=== PATIENT | male | born 1960 | race Caucasian/White ===

== ENCOUNTER 2016-03-23 08:07 | Inpatient (IN) | payer OTHER ==
[~2016-03-23] VITALS: Ht 170.2 cm; Wt 96.0 kg
[2016-03-23] VITALS (9 sets, daily range): BP systolic 128–164; BP diastolic 66–88; PULSE 56–76; RESP 15–20; TEMP 96.2–98.2; O2SAT 92–97
[2016-03-23] MEDS ORDERED: CELE50CA PO (08:18)
[2016-03-23] MEDS ORDERED: SODIUM CHLOR 0.9% 1000 ML INJ 1,000 ML IV ONE (08:25)
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
[2016-03-23] MEDS ORDERED: IOHEXOL 350 MG/ML 10 ML VIAL (for RAD DIAG) IV ONE (08:48)
--- NOTE | 2016-03-23 08:50 | RADRPT ---
EXAM DATE/TIME: 03/23/2016 08:34 This report includes an Addendum and supersedes previous reports for this exam. [facility] COMPARISON: No previous studies available for comparison. INDICATIONS : Stroke alert; Expressive aphasia today. RADIATION DOSE: 43.12 CTDIvol (mGy) MEDICAL HISTORY : Head trauma 2 weeks ago. SURGICAL HISTORY : None. ENCOUNTER: Initial ACUITY: 1 day PAIN SCALE: 0/10 LOCATION: cranial TECHNIQUE: Multiple contiguous axial images were obtained of the head. Using automated exposure control and adj ustment of the mA and/or kV according to patient size, radiation dose was kept as low as reasonably a chievable to obtain optimal diagnostic quality images. FINDINGS: CEREBRUM: There is a moderate-sized acute left middle cerebral artery infarction which involves the left tempor al and mid parietal lobes. There is no acute hemorrhage, midline shift or extra-axial fluid collectio ns. The ventricles, sulci and cisterns are unremarkable. POSTERIOR FOSSA: The cerebellum and brainstem are intact. The 4th ventricle is midline. The cerebellopontine angle i s unremarkable. EXTRACRANIAL: The visualized portion of the orbits is intact. SKULL: The calvaria is intact. No evidence of skull fracture. CONCLUSION: Moderate-sized acute left middle cerebral artery infarction which involves the left t emporal and mid parietal lobes. No acute hemorrhage or midline shift is noted. Dr. Sanabria was called with the findings of the examination at 8:46 AM on 03/23/16. Kwadwo Alvarado MD on March 23, 2016 at 8:45 Board Certified Radiologist. This report was verified electronically. ADDENDUM: The CTA of the brain was reviewed shortly after this reading and it was noted that there is a periphe rally enhancing mass within the left temporal lobe with associated edema rather than an acute left MC A infarct. This finding was called immediately to Dr. Riky Delacruz at 8:55 AM on 03/23/16. Kwadwo Alvarado MD on March 23, 2016 at 9:28 Board Certified Radiologist. This report was verified electronically.
[2016-03-23 08:52] LABS: I-STAT POTASSIUM 4.2 MMOL/L (3.5-4.9); I-STAT SODIUM 142 MMOL/L (138-146)
[2016-03-23 08:53] LABS: AUTOMATED NEUTROPHIL # 4.3 TH/MM3 (1.8-7.7); BASOPHIL # 0.1 TH/MM3 (0-0.2); EOSINOPHIL # 0.3 TH/MM3 (0-0.4); HEMATOCRIT 41.7 % (39.0-51.0); HEMO FLAGS DIFF FINAL; LYMPH % 31.7 % (9.0-44.0); LYMPHOCYTE # 2.4 TH/MM3 (1.0-4.8); MEAN CELL VOLUME 90.3 FL (80.0-100.0); MEAN CORPUSCULAR HEMOGLOBIN 30.6 PG (27.0-34.0); MEAN CORPUSCULAR HGB CONC 33.9 % (32.0-36.0); MONO % 6.9 % (0.0-8.0); NEUT % 56.4 % (16.0-70.0); PLATELET COUNT 235 TH/MM3 (150-450); RED BLOOD COUNT 4.62 MIL/MM3 (4.50-5.90); RED CELL DISTRIBUTION WIDTH 13.6 % (11.6-17.2); WHITE BLOOD COUNT 7.7 TH/MM3 (4.0-11.0)
[2016-03-23 09:01] LABS: APTT (PATIENT) 24.3 SEC (24.3-30.1)
[2016-03-23 09:14] LABS: CREATINE KINASE 408 U/L (39-308)
[2016-03-23 09:26] LABS: CKMB 6.9 NG/ML (0.5-3.6)
--- NOTE | 2016-03-23 09:28 | RADRPT ---
EXAM DATE/TIME: 03/23/2016 08:34 [facility] COMPARISON: CT BRAIN W/O CONTRAST, March 23, 2016, 8:34. INDICATIONS : Stroke alert; expressive aphasia. IV CONTRAST: 99 cc Omnipaque 350 (iohexol) IV ; Cumulative dose for multiple exams. RADIATION DOSE: 28.64 CTDIvol (mGy) ; Combined studies MEDICAL HISTORY : Head trauma 2 weeks ago. SURGICAL HISTORY : None. ENCOUNTER: Initial ACUITY: 1 day PAIN SCALE: 0/10 LOCATION: cranial TECHNIQUE: Volumetric scanning was performed using a multi-row detector CT scanner. The data was post processed with a variety of visualization algorithms including full volume maximum intensity projection, multi -planar sliding thin slab reformation, curved planar reformation, and surface rendering techniques. Using automated exposure control and adjustment of the mA and/or kV according to patient size, radiat ion dose was kept as low as reasonably achievable to obtain optimal diagnostic quality images. FINDINGS: CT angiography of the brain demonstrates an irregular ring-enhancing lesion in the anterior left temp oral lobe measuring 3.1 cm in diameter suspicious for malignancy. No other enhancing lesions are iden tified and primary malignancy including glioblastoma is not excluded. MRI is recommended for further evaluation if clinically indicated. No large vessel occlusion or aneurysm is seen. Examination of posterior fossa also demonstrates no evidence of aneurysm or vascular malformation. Th e vertebral arteries are codominant. There are patent posterior communicating arteries bilaterally. CONCLUSION: 1. No evidence of vessel occlusion. 2. 3.1 cm mass in the anterior left temporal lobe suspicious for malignancy. MRI is recommended for f urther evaluation if clinically indicated. Khadar Killian MD on March 23, 2016 at 9:10 Board Certified Radiologist. This report was verified electronically.
[2016-03-23] MEDS ORDERED: ONDANSETRON HCL 4 MG/2 ML VIAL IVP PRN (10:00)
[2016-03-23] MEDS ORDERED: NALOXONE HCL 0.4 MG/ML AMP IV PRN (10:00)
[2016-03-23] MEDS ORDERED: SODIUM CHLORIDE 0.9% FLUSH 5 ML FLUSH FLUSH PRN (10:00)
[2016-03-23] MEDS: FAMOTIDINE 20 MG TAB PO SCH ×2 (10:01→20:48)
--- NOTE | 2016-03-23 10:16 | RADRPT ---
EXAM DATE/TIME: 03/23/2016 08:34 [facility] COMPARISON: No previous studies available for comparison. INDICATIONS : Stroke alert; expressive aphasia. IV CONTRAST: 99 cc Omnipaque 350 (iohexol) IV ; Cumulative dose for multiple exams. RADIATION DOSE: 28.64 CTDIvol (mGy) ; Combined studies MEDICAL HISTORY : Head trauma 2 weeks ago. SURGICAL HISTORY : None. ENCOUNTER: Initial ACUITY: 1 day PAIN SCALE: 0/10 LOCATION: cranial TECHNIQUE: Volumetric scanning was performed using a multirow detector CT scanner. The data was post processed with a variety of visualization algorithms including full-volume maximum intensity projection, multip lanar sliding thin-slab reformation, curved-planar reformation, and surface-rendering techniques. Us ing automated exposure control and adjustment of the mA and/or kV according to patient size, radiatio n dose was kept as low as reasonably achievable to obtain optimal diagnostic quality images. FINDINGS: AORTIC ARCH: There is a three-vessel origin of the great vessels from the aorta. No evidence of ostial narrowing. RIGHT CAROTID: The common carotid artery is intact. The carotid bulb has a normal configuration without ulceration o r narrowing. The internal carotid artery lumen is smooth without stenosis. The external carotid shabbir ry is intact. LEFT CAROTID: The common carotid artery is intact. The carotid bulb has a normal configuration without ulceration or narrowing. The internal carotid artery lumen is smooth without stenosis. The external carotid ar tereza is intact. VERTEBRALS: The vertebral arteries have a symmetric diameter. No stenotic lesions are seen. CONCLUSION: No acute disease. Kwadwo Alvarado MD on March 23, 2016 at 10:12 Board Certified Radiologist. This report was verified electronically.
--- NOTE | 2016-03-23 10:24 | RADRPT ---
EXAM DATE/TIME: 03/23/2016 09:52 [facility] COMPARISON: No previous studies available for comparison. INDICATIONS : Stroke alert. MEDICAL HISTORY : Head trauma 2 weeks ago. SURGICAL HISTORY : None. ENCOUNTER: Initial ACUITY: 1 day PAIN SCORE: 0/10 LOCATION: Bilateral chest FINDINGS: A single view of the chest demonstrates the lungs to be symmetrically aerated without evidence of mas s, infiltrate or effusion. The cardiomediastinal contours are unremarkable. Osseous structures are intact. CONCLUSION: No acute disease. Philippe Kay MD on March 23, 2016 at 10:22 Board Certified Radiologist. This report was verified electronically.
[2016-03-23] MEDS ORDERED: GADODIAMIDE PF 287 MG/ML 20 ML VIAL (for RAD MRI) IV ONE (10:42)
--- NOTE | 2016-03-23 10:47 | MB ---
cc: PRAMOD ABRAHAM M.D. DATE OF CONSULTATION 03/23/2016 REASON FOR CONSULTATION Stroke alert HISTORY OF PRESENT ILLNESS Mr. Rincon is a very nice 55-year-old right-handed white male previously in good health until around 07:45 this morning. At that time, his was driving him to work in the car. He suddenly had a nauseating type of feeling come over him and then he had difficulty getting words out. He states she could think of what he wanted to say, but had trouble expressing the words. He would say a word salad where the words did not make sense. He had no focal weakness or numbness. No other focal symptoms. No headache. In retrospect for the past couple of weeks, he has been having spells where he would have some difficulty getting words out, but no headaches, no visual complaints. No weight loss. PAST MEDICAL HISTORY Otherwise unremarkable. MEDICATIONS He takes: 1. Multivitamin 2. Testosterone 3. Celebrex ALLERGIES Are none known. SOCIAL HISTORY Denies drug abuse, tobacco use. Drinks alcohol rarely. NEUROLOGIC EXAMINATION VITAL SIGNS: Blood pressure is 155/85, pulse 62, respiratory rate is 20, temperature 98.2 degrees. Higher cortical functions: At this time he is alert, oriented x3. Speech is completely back to normal at the present time with normal fluency and normal comprehension. Cranial nerves: The pupils are 2 mm symmetric and reactive. The extraocular movements area intact. There is no facial asymmetry. Tongue protrudes midline. On motor exam, he has normal strength and tone of all major groups in both upper and lower extremities. There is no drift. Fine motor skills normal. Reflexes symmetric with no Babinski sign present. Sensory exam intact. CT of the brain shows an area of edema which appears to be mainly vasogenic edema in the left parietal and temporal area. CTA shows a ring-enhancing lesion most likely a left hemisphere tumor with associated edema. LABORATORY DATA The white count is 7700, hemoglobin 14.1, hematocrit 41.7% platelet count is 235,000. His PT is pending. Chemistry reveals a sodium 142, potassium 42, chloride 104, BUN is 23, creatinine 1, glucose 123. IMPRESSION The episode he had was probably a focal seizure related to the left hemisphere tumor. In retrospect, he has been having a couple of episodes of speech arrest over the past week which I suspect might be focal seizures. RECOMMENDATIONS We will start the patient on Keppra for the possibility of seizures. Also start Decadron because of the edema. We will further evaluate the lesion with an MRI of the brain also obtain an EEG. Would also recommend a neurosurgical evaluation. We will place the patient under seizure precautions as well. The patient has an NIH stroke scale initially on presentation of 4, now he is back to normal. TPA was not given because of what is mentioned above that the patient actually suffered a focal seizure from a tumor, although presenting as a stroke alert. Upon further evaluation, it was determined not to be a stroke, but to be a tumor with a focal seizure. Thank you for asking us to see this nice patient in consultation. MD BRUNILDA Brooks/TAVIA /9:25 AM /10:32 AM
--- NOTE | 2016-03-23 10:48 | PD.CONS ---
History of Present Illness Service Neurosurgery Consult Requested By Emergency room , Dr. Polly Sanabria Primary Care Physician Non-Staff Diagnoses: Past Family Social History Allergies: Coded Allergies: No Known Allergies (Unverified , 03/23/16) Physical Exam Vital Signs Vital Signs Date Time Temp Pulse Resp B/P Pulse Ox O2 Delivery O2 Flow Rate FiO2 03/23/16 10:25 95 21 03/23/16 08:50 75 15 156/72 96 Room Air 03/23/16 08:10 94 Room Air 03/23/16 08:10 94 Room Air 03/23/16 08:08 98.2 62 20 155/85 92 03/23/16 08:08 76 16 94 Room Air Physical Exam GENERAL: This is a well-nourished, well-developed patient, in no apparent distress. SKIN: No rashes, ecchymoses or lesions. Cool and dry. HEAD: Atraumatic. Normocephalic. No temporal or scalp tenderness. EYES: Pupils equal round and reactive. Extraocular motions intact. No scleral icterus. No injection or drainage. ENT: Nose without bleeding, purulent drainage or septal hematoma. Throat without erythema, tonsillar hypertrophy or exudate. Uvula midline. Airway patent. NECK: Trachea midline. No JVD or lymphadenopathy. Supple, nontender, no meningeal signs. CARDIOVASCULAR: Regular rate and rhythm without murmurs, gallops, or rubs. RESPIRATORY: Clear to auscultation. Breath sounds equal bilaterally. No wheezes , rales, or rhonchi. GASTROINTESTINAL: Abdomen soft, non-tender, nondistended. No hepato-splenomegaly , or palpable masses. No guarding. MUSCULOSKELETAL: Extremities without clubbing, cyanosis, or edema. No joint tenderness, effusion, or edema noted. No calf tenderness. Negative Homans sign bilaterally. NEUROLOGICAL: Awake and alert. Cranial nerves II through XII intact. Motor and sensory grossly within normal limits. Five out of 5 muscle strength in all muscle groups. Normal speech. Laboratory Laboratory Tests Test 03/23/16 08:30 White Blood Count 7.7 Red Blood Count 4.62 Hemoglobin 14.1 Bedside Hemoglobin 13.3 Hematocrit 41.7 Bedside Hematocrit 39.0 Mean Corpuscular Volume 90.3 Mean Corpuscular Hemoglobin 30.6 Mean Corpuscular Hemoglobin 33.9 Concent Red Cell Distribution Width 13.6 Platelet Count 235 Mean Platelet Volume 7.7 Neutrophils (%) (Auto) 56.4 Lymphocytes (%) (Auto) 31.7 Monocytes (%) (Auto) 6.9 Eosinophils (%) (Auto) 4.0 Basophils (%) (Auto) 1.0 Neutrophils # (Auto) 4.3 Lymphocytes # (Auto) 2.4 Monocytes # (Auto) 0.5 Eosinophils # (Auto) 0.3 Basophils # (Auto) 0.1 CBC Comment DIFF FINAL Differential Comment Prothrombin Time 11.0 Prothromb Time International 1.0 Ratio Activated Partial 24.3 Thromboplast Time Fibrinogen 223 Bedside Sodium 142 Bedside Potassium 4.2 Bedside Chloride 104 Bedside Blood Urea Nitrogen 23 Bedside Creatinine 1.0 Bedside Glucose 123 Total Creatine Kinase 408 Creatine Kinase MB 6.9 Creatine Kinase MB % 1.7 Troponin I LESS THAN 0.02 Blood Type A POSITIVE Antibody Screen NEGATIVE Blood Bank Comment Result Diagram: 03/23/16829 Imaging Chest X-Ray 03/23/16 0947 Signed Impressions: Service Date/Time: March 09:52 - CONCLUSION: No acute disease. Philippe Kay MD Neck CTA 03/23/16824 Signed Impressions: Service Date/Time: March 08:34 - CONCLUSION: No acute disease. Kwadwo Alvarado MD Head CTA 03/23/16824 Signed Impressions: Service Date/Time: March 08:34 - CONCLUSION: 1. No evidence of vessel occlusion. 2. 3.1 cm mass in the anterior left temporal lobe suspicious for malignancy. MRI is recommended for further evaluation if clinically indicated. 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 No acute hemorrhage or midline shift is noted. Dr. Sanabria was called with the findings of the examination at 8:46 AM on 03/23/16. Kwadwo Alvarado MD ADDENDUM: The CTA of the brain was reviewed shortly after this reading and it was noted that there is a peripherally enhancing mass within the left temporal lobe with associated edema rather than an acute left MCA infarct. This finding was called immediately to Dr. Riky Delacruz at 8:55 AM on 03/23/16. Kwadwo Alvarado MD Brain MRI 03/23/16 0000 Signed Impressions: Service Date/Time: March 10:28 - CONCLUSION: 1. Peripherally enhancing mass within the left temporal lobe measuring 3.9 x 3.2 x 2.9 cm with associated vasogenic edema extending throughout the left temporal lobe and minimal subfalacine herniation to the right measuring 2 mm. This lesion is suspicious for primary central nervous system neoplasm, in particular , glioblastoma should be considered most likely. Kwadwo Alvarado MD Assessment and Plan Assessment and Plan Impression: 1. Left temporal brain lesion. 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 Recommendations: Discussed at length with the patient and his in the emergency room CT scan chest and abdomen pending Gen. treatment options of biopsy versus surgical resection of the lesion with pronation therapy as well as chemotherapy is indicated been fully discussed. Despite the location of the lesion in the dominant temporal lobe, it is felt that surgical resection would offer the best prognosis with the patient with reasonably low risk of surgical complication. Patient and his are going to consider treatment options, and further discussion will be undertaken following the completion of the CT scan images. Patient is on Keppra for seizure prophylaxis, Decadron and medication for ulcer prophylaxis. Kenneth Burger MD Mar 23, 2016 10:48
--- NOTE | 2016-03-23 11:37 | HHI.HP ---
[facility] Primary Care Physician Non-Staff Admission Diagnosis BRAIN TUMOR Diagnoses: Chief Complaint: Aphasia. Word salad, memory impairment. Travel History International Travel<30 Days: No Contact w/Intl Traveler <30 Da: No Traveled to Known Affected Are: No History of Present Illness 55-year-old pleasant male brought in by his due to acute onset confusion and a burst speech. The patient and his has been doing some olivia work as volunteers. On the way to work this morning around 7 AM, he initially complained of feeling nauseous and shortly after he had an acute episode of confusion, with gibberish speech. His immediately brought him into the emergency room. A stroke alert was called. CT of the brain revealed a 3.1 cm mass in the anterior left temporal lobe suspicious for malignancy. The patient has regained most of his neurological function. Currently he is able to provide that history but admits to have some mild memory impairment. His is at the bedside. He denies any focal weakness. No headache or change in his vision. He has been started on IV steroid and Keppra per neurology recommendations. Review of Systems Constitutional: DENIES: Fever, Chills Endocrine: DENIES: Polyuria Eyes: DENIES: Blurred vision, Diplopia Ears, nose, mouth, throat: DENIES: Vertigo Respiratory: DENIES: Cough, Shortness of breath Gastrointestinal: COMPLAINS OF: Nausea, DENIES: Vomiting Genitourinary: DENIES: Dysuria Musculoskeletal: COMPLAINS OF: Joint pain (hands) Integumentary: DENIES: Rash Neurologic: COMPLAINS OF: Speech Problems, DENIES: Headache, Localized weakness Psychiatric: COMPLAINS OF: Confusion, DENIES: Mood changes Past Family Social History Past Medical History Arthritis involving the shoulders and hands. Low testosterone Past Surgical History None Reported Medications Reported Meds & Active Scripts Active Reported Celebrex (Celecoxib) 50 Mg Cap 50 Mg PO BID Allergies: Coded Allergies: No Known Allergies (Unverified , 03/23/16) Family History Patient's mother in her 50s from complications of Mitzy Gehrig's disease Father is alive and well. Sister in her 50s doing a seizure,?suffocated Another sister of unknown causes at a young age. One sister alive and well. Social History Patient denies tobacco, admits to occasional alcohol use, no illicit drug. Physical Exam Vital Signs Vital Signs Date Time Temp Pulse Resp B/P Pulse Ox O2 Delivery O2 Flow Rate FiO2 03/23/16 10:25 95 21 03/23/16 08:50 75 15 156/72 96 Room Air 03/23/16 08:10 94 Room Air 03/23/16 08:10 94 Room Air 03/23/16 08:08 98.2 62 20 155/85 92 03/23/16 08:08 76 16 94 Room Air Physical Exam GENERAL: This is a well-nourished, well-developed patient, in no apparent distress. SKIN: No rashes, ecchymoses or lesions. Cool and dry. HEAD: Atraumatic. Normocephalic. No temporal or scalp tenderness. EYES: Pupils equal round and reactive. Extraocular motions intact. No scleral icterus. No injection or drainage. ENT: Nose without bleeding, purulent drainage or septal hematoma. Throat without erythema, tonsillar hypertrophy or exudate. Uvula midline. Airway patent. NECK: Trachea midline. No JVD or lymphadenopathy. Supple, nontender, no meningeal signs. CARDIOVASCULAR: Regular rate and rhythm without murmurs, gallops, or rubs. RESPIRATORY: Clear to auscultation. Breath sounds equal bilaterally. No wheezes , rales, or rhonchi. GASTROINTESTINAL: Abdomen soft, non-tender, nondistended. No hepato-splenomegaly , or palpable masses. No guarding. MUSCULOSKELETAL: Extremities without clubbing, cyanosis, or edema. No joint tenderness, effusion, or edema noted. No calf tenderness. Negative Homans sign bilaterally. NEUROLOGICAL: Awake and alert. Cranial nerves II through XII intact. Motor and sensory grossly within normal limits. Five out of 5 muscle strength in all muscle groups. Normal speech. Gait not assessed. Some mild memory impairment at times. Could not remember when his sister which was last summer according to his . Laboratory Laboratory Tests Test 03/23/16 08:30 White Blood Count 7.7 Red Blood Count 4.62 Hemoglobin 14.1 Bedside Hemoglobin 13.3 Hematocrit 41.7 Bedside Hematocrit 39.0 Mean Corpuscular Volume 90.3 Mean Corpuscular Hemoglobin 30.6 Mean Corpuscular Hemoglobin 33.9 Concent Red Cell Distribution Width 13.6 Platelet Count 235 Mean Platelet Volume 7.7 Neutrophils (%) (Auto) 56.4 Lymphocytes (%) (Auto) 31.7 Monocytes (%) (Auto) 6.9 Eosinophils (%) (Auto) 4.0 Basophils (%) (Auto) 1.0 Neutrophils # (Auto) 4.3 Lymphocytes # (Auto) 2.4 Monocytes # (Auto) 0.5 Eosinophils # (Auto) 0.3 Basophils # (Auto) 0.1 CBC Comment DIFF FINAL Differential Comment Prothrombin Time 11.0 Prothromb Time International 1.0 Ratio Activated Partial 24.3 Thromboplast Time Fibrinogen 223 Bedside Sodium 142 Bedside Potassium 4.2 Bedside Chloride 104 Bedside Blood Urea Nitrogen 23 Bedside Creatinine 1.0 Bedside Glucose 123 Total Creatine Kinase 408 Creatine Kinase MB 6.9 Creatine Kinase MB % 1.7 Troponin I LESS THAN 0.02 Blood Type A POSITIVE Antibody Screen NEGATIVE Blood Bank Comment Result Diagram: 03/23/16829 Imaging Last Impressions Chest X-Ray 03/23/1647 Signed Impressions: Service Date/Time: March 09:52 - CONCLUSION: No acute disease. Philippe Kay MD Neck CTA 03/23/16824 Signed Impressions: Service Date/Time: March 08:34 - CONCLUSION: No acute disease. Kwadwo Alvarado MD Head CTA 03/23/16824 Signed Impressions: Service Date/Time: March 08:34 - CONCLUSION: 1. No evidence of vessel occlusion. 2. 3.1 cm mass in the anterior left temporal lobe suspicious for malignancy. MRI is recommended for further evaluation if clinically indicated. 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 No acute hemorrhage or midline shift is noted. Dr. Sanabria was called with the findings of the examination at 8:46 AM on 03/23/16. Kwadwo Alvarado MD ADDENDUM: The CTA of the brain was reviewed shortly after this reading and it was noted that there is a peripherally enhancing mass within the left temporal lobe with associated edema rather than an acute left MCA infarct. This finding was called immediately to Dr. Riky Delacruz at 8:55 AM on 03/23/16. Kwadwo Alvarado MD Assessment and Plan Problem List: (1) Brain tumor ICD Code: D49.6 Status: Acute (2) Osteoarthritis ICD Code: M19.90 Status: Acute Assessment and Plan 55-year-old male being admitted for newly discovered brain tumor. Patient presented with acute confusion, aphasia, and word salad. His symptoms have since resolved. Brain CT revealed a 3.1 cm mass in the anterior left temporal lobe suspicious for malignancy. MRI is recommended. - Appreciate neurology following. Patient has been started on Decadron for edema noted on imaging. He was also started on Keppra as his symptoms may have been a possible seizure. - MRI and EEG ordered. Seizure precautions - Neurosurgery has been consulted. Patient will need a biopsy. Osteoarthritis: May use Lortab as needed. Hold off on NSAIDs for now. GI prophylaxis: Pepcid. Stool softener PRN constipation. DVT PPx: SCDs Discussed Condition With With ER physician, Dr. Sanabria. Physician Certification 2 Midnight Certification Type: Admission for Inpatient Services Order for Inpatient Services The services are ordered in accordance with Medicare regulations or non- Medicare payer requirements, as applicable. In the case of services not specified as inpatient-only, they are appropriately provided as inpatient services in accordance with the 2-midnight benchmark. Estimated LOS (days): 5 days is the estimated time the patient will need to remain in the hospital, assuming treatment plan goals are met and no additional complications. Post-Hospital Plan: Home Emmett Michael MD Mar 23, 2016 11:37
[2016-03-23] MEDS: SODIUM CHLOR 0.45% 1000 ML INJ 1,000 ML IV SCH ×2 (11:50→20:49)
[2016-03-23] MEDS ORDERED: DEXAMETHASONE SOD PHOS 4 MG/ML VIAL IM SCH (12:00)
--- NOTE | 2016-03-23 12:13 | RADRPT ---
EXAM DATE/TIME: 03/23/2016 10:28 [facility] COMPARISON: No previous studies available for comparison. INDICATIONS: Mass. Confusion and difficulty speaking. CONTRAST: 18 cc Omniscan (gadodiamide) IV MEDICAL HISTORY: Arthritis. SURGICAL HISTORY: Tonsillectomy. ENCOUNTER: Subsequent ACUITY: 1 day PAIN SCORE: 0/10 LOCATION: Head. TECHNIQUE: Multiplanar, multisequence MRI of the brain was performed both prior to and following the administrat ion of paramagnetic contrast. FINDINGS: There is evidence of a peripherally enhancing mass within the left temporal lobe measuring 3.9 x 3.2 x 2.9 cm. Vasogenic edema extends throughout the left temporal lobe. There is very minimal subfalac ine herniation to the right measuring 2 mm. This mass is suspicious for primary central nervous syst em neoplasm, in particular, glioblastoma should be considered most likely. No other enhancing lesion s are identified within the brain parenchyma. There is no acute hemorrhage, acute infarct or extraax ial collection. The ventricles, sulci and cisterns are normal in size, shape and position for the pa tient's age. CONCLUSION: 1. Peripherally enhancing mass within the left temporal lobe measuring 3.9 x 3.2 x 2.9 cm with asso ciated vasogenic edema extending throughout the left temporal lobe and minimal subfalacine herniation to the right measuring 2 mm. This lesion is suspicious for primary central nervous system neoplasm, in particular, glioblastoma should be considered most likely. Kwadwo Alvarado MD on March 23, 2016 at 11:52 Board Certified Radiologist. This report was verified electronically.
[2016-03-23] MEDS ORDERED: LORazepam 2 MG/ML VIAL IV PUSH ONE (13:15)
--- NOTE | 2016-03-23 13:41 | EKG ---
Date Performed: 03/23/2016 Time Performed: 08:17:34 PTAGE: 55 years EKG: Sinus rhythm NONSPECIFIC T-WAVE ABNORMALITY BORDERLINE ECG NO PREVIOUS TRACING DOCTOR: Tao Cortez Interpretating Date/Time 03/23/2016 13:39:58
[2016-03-23] MEDS: levETIRAcetam INJ 500 MG in SODIUM CHLORIDE 0.9% INJ 100 ML IV SCH ×2 (15:15→20:49)
--- NOTE | 2016-03-23 16:05 | MG ---
cc: SKYLAR CHOI M.D. Lab No: [id number] Date: 03/23/2016 Age: 56 Sex: M Race: Minimal subfalcine herniation to the right, glioblastoma, Decadron. A symmetric 7 to 8 Hz, 50 microvolt posterior rhythm is noted. I do not see any frontal lobe abnormalities. Some mild diffuse theta slowing is at times seen. Appears the patient falls asleep and reaches some stage II sleep which is synchronous and symmetric. Hyperventilation was not performed. Photic stimulation was performed without significant posterior driving. IMPRESSION Minimal diffuse slowing consistent with a mild diffuse encephalopathy but no focal abnormalities noted. No seizure activity was seen. Specifically no frontal lobe abnormalities were noted. MD KENDALL Keen/BLAYNE /2:49 PM /3:57 PM
[2016-03-23] MEDS: SODIUM CHLORIDE 0.9% FLUSH 5 ML FLUSH FLUSH SCH (20:49)
--- NOTE | 2016-03-23 22:27 | MB ---
cc: ELHAM DESAI MD,KENNETH Raman M.D. DATE OF CONSULTATION: 03/23/2016 HEMATOLOGY/ONCOLOGY CONSULTATION NOTE DATE OF : 1960 CONSULT REQUESTED BY Dr. Kenneth Burger REASON FOR CONSULTATION The patient found to have an infiltrating mass involving the left temporal lobe of the brain. The oncology service has been consulted to assist in further workup and management of what appears to be a malignant process. CHIEF COMPLAINT The patient reports a gradual onset of difficulty finding words over the past two weeks. HISTORY OF PRESENT ILLNESS Mr. Rincon is a very pleasant 55-year-old male of the [employer] who served three tours of duty. Mr. Rincon reports being in his usual excellent state of health up until about two weeks ago when he began to notice difficulty naming objects and formulating sentences. He reported these symptoms to his , and they felt this may have been attributed to more than normal physical exertion and fatigue. On the morning of admission to the hospital, the patient developed confusion and difficulty speaking proper words. He also reports having a vague headache. His suspected he was having a stroke and brought him to the [facility] Emergency Department for further workup and management. Imaging studies performed at [facility] included an MRI of the brain with and without contrast on 03/23/2016. This revealed a peripherally enhancing left temporal lobe mass measuring up to 3.9 cm associated with vasogenic edema. There was minimal subfalcine herniation of about 2 mm. Differential diagnoses included glioblastoma multiforme as well as other primary brain malignancy such as primary [employer] lymphoma. He is awaiting systemic staging with a CT scan of the abdomen and pelvis as well as chest to rule out an extrathoracic primary. PAST MEDICAL HISTORY The patient denies any chronic medical conditions. SURGICAL HISTORY Denies any surgical procedures. FAMILY HISTORY Mother of ALS. The father is living, he is about 78 years old. He had a second sister who of seizures. SOCIAL HISTORY The patient is , he lives with his . He is originally from [facility] which is where he spends most of the year, him and spend the winter months in [place]. He has one son who is an adult and serves in the [employer]. Mr. Rincon reports formerly having been a smoker but quit in 2000, prior to that he smoked less than a pack a day for about 20 years. He denies alcohol consumption. ALLERGIES NO KNOWN DRUG ALLERGIES. OUTPATIENT MEDICATIONS None. INPATIENT MEDICATIONS 1. Dexamethasone 4 mg IV q.6 hours. 2. Keppra infusion. 3. Zofran 4 mg IV q.4 hours as needed for nausea and vomiting. 4. Normal saline 75 cc/hr. 5. Famotidine 20 mg p.o. b.i.d. REVIEW OF SYSTEMS Mr. Rincon denies any specific symptoms. He denies any fevers, chills, night sweats, decreased appetite or weight loss. HEENT: Reports a vague headache, denies difficulty swallowing, soreness in the throat, nosebleeds, or visual field deficits. RESPIRATORY: Denies difficulty breathing, cough or hemoptysis. Pleuritic chest pain. CARDIOVASCULAR: Denies angina-like chest pain, PND, orthopnea or lower extremity swelling. GI: Denies nausea, vomiting, diarrhea hematochezia or melena. UG: No dysuria, hematuria or urinary incontinence. [employer]: Please see HPI; the patient reports having had difficulty with word searching and expressive aphasia. He denies any focal sensory or motor deficits. SKIN: No complaints. PHYSICAL EXAMINATION VITAL SIGNS: Vital signs reveal temperature 98.2 degrees Fahrenheit, heart rate 76 beats per minute, blood pressure 16 breaths per minute, blood pressure 151/81, O2 sats 96% on room air. GENERAL PHYSICAL APPEARANCE: Mr. Rincon is a middle-aged male, he is short, he is muscular built, appears to be in no acute distress, accompanied by his . He speaks in full sentences. HEENT: Head is atraumatic, normocephalic. Conjunctivae are non-pale. Sclerae anicteric. EOMI. PERRLA. Oral exam - no pharyngeal erythema. NECK EXAM: No palpable cervical or supraclavicular adenopathy. RESPIRATORY EXAM: Good air movement bilaterally. No added breath sounds. CARDIOVASCULAR: Regular rate and rhythm. S1 plus S2. No obvious murmurs, rubs or gallops. ABDOMINAL EXAM: Protuberant belly, soft, nontender, nondistended. No palpable organ enlargement. AXILLARY EXAMINATION: No evidence of lymphadenopathy. INGUINAL EXAMINATION: No evidence of lymphadenopathy. LOWER EXTREMITIES: No pretibial edema or calf tenderness. [employer]: 5/5 motor strength of the upper and lower extremities to flexion and extension. LABORATORY FINDINGS Blood work dated 03/23/2016: WBC count 7.7, hemoglobin 14.1 g/dL, hematocrit 41.7%, platelet count 235, absolute neutrophil count 4.3. Chemistries: Sodium 142, potassium 4.2, chloride 104, bicarbonate 23, creatinine 1, creatine kinase 408, glucose 123. IMAGING STUDIES MRI of the brain dated 03/23/2016 reveals peripherally enhancing mass within the left temporal lobe measuring 3.9 x 3.2 x 2.9 cm with associated vasogenic edema extending through the left temporal lobe and minimal subfalcine herniation to the right measuring 2 mm. The lesion is suspicious for a primary [employer] neoplasm such as glioblastoma multiforme or a primary [employer] lymphoma. ASSESSMENT Mr. Rincon is a very pleasant 55-year-old male who reports being in his excellent usual state of health up until about two weeks ago when he began to notice subtle onset of difficulty with word finding, on the day of presentation he had an acute worsening of the symptoms to the point where his could not make out his words or speech. He presented to the emergency department with these symptoms, imaging studies of the brain revealed an infiltrative mass measuring up to 4 cm associated with vasogenic edema involving the left temporal lobe of the brain. The characteristics of this lesion and specifically the enhancement characteristics are most consistent with a glioblastoma multiforme. The oncology service has been consulted to rule out presence of extracranial disease which may have been a potential primary source. RECOMMENDATIONS 1. Left temporal lobe mass associated with an enhancing edge/rim: Await CT imaging of the chest, abdomen and pelvis to evaluate for extracranial disease. For management of vasogenic edema continue dexamethasone 4 mg IV q.6 hours. 2. Continue seizure prophylaxis with Keppra. This patient will likely require excisional biopsy of this lesion should there be no evidence of extracranial disease. A maximal safe resection will be recommended should he require a biopsy. The oncology service will follow along with you. At today's visit I did review the MRI imaging scans with the patient and his . I helped them understand the characteristics of his lesion so he could better visualize the intracranial abnormalities. Further recommendations based on final diagnosis. MD MANASA Colindres/SOPHIA /9:09 PM /9:46 PM
[2016-03-23] MEDS: DEXAMETHASONE SOD PHOS 4 MG/ML VIAL IV PUSH SCH (23:10)
[2016-03-24] VITALS: BP 135/73; PULSE 70; RESP 20; TEMP 97; O2SAT 96
[2016-03-24] MEDS: levETIRAcetam INJ 500 MG in SODIUM CHLORIDE 0.9% INJ 100 ML IV SCH ×3 (03:37→14:55)
[2016-03-24 04:00] VITALS: BP 131/63; PULSE 65; RESP 20; TEMP 97; O2SAT 96
[2016-03-24] MEDS: DEXAMETHASONE SOD PHOS 4 MG/ML VIAL IV PUSH SCH ×3 (06:45→17:50)
[2016-03-24 08:00] VITALS: BP 138/75; PULSE 60; RESP 18; TEMP 95.8; O2SAT 96
[2016-03-24] MEDS ORDERED: IOHEXOL 350 MG/ML 10 ML VIAL (for RAD DIAG) IV ONE (08:10)
[2016-03-24] MEDS: SODIUM CHLORIDE 0.9% FLUSH 5 ML FLUSH FLUSH SCH (08:46)
[2016-03-24] MEDS: FAMOTIDINE 20 MG TAB PO SCH (08:46)
[2016-03-24 08:49] LABS: BICARBONATE 22.6 MEQ/L (21.0-32.0)
--- NOTE | 2016-03-24 09:58 | RADRPT ---
EXAM DATE/TIME: 03/24/2016 08:10 [facility] COMPARISON: No previous studies available for comparison. INDICATIONS : Brain lesion; assess for possible metastatic disease. IV CONTRAST: 100 cc Omnipaque 350 (iohexol) IV ; Cumulative dose for multiple exams. RADIATION DOSE: 17.20 CTDIvol (mGy) ; Combined studies - Thorax/Abdomen/Pelvis MEDICAL HISTORY : Arthritis. Brain tumor. SURGICAL HISTORY : ENCOUNTER: Initial ACUITY: 2 days PAIN SCALE: Non-responsive LOCATION: Bilateral lower quadrant TECHNIQUE: Volumetric scanning of the chest was performed. Using automated exposure control and adjustment of the mA and/or kV according to patient size, radiation dose was kept as low as reasonab ly achievable to obtain optimal diagnostic quality images. FINDINGS: LUNGS: There is no consolidation or pneumothorax. No concerning pulmonary nodule is visualized. PLEURA: There is no pleural thickening or pleural effusion. MEDIASTINUM: The heart and great vessels demonstrate no acute abnormality. There is no mediastin al or hilar lymphadenopathy. AXILLAE: Within normal limits. No lymphadenopathy. SKELETAL: Within normal limits for patient age. MISCELLANEOUS: The visualized upper abdominal organs demonstrate no acute abnormality. CONCLUSION: Negative for metastatic disease disease or site of primary. Crow Nesbitt MD FACR on March 24, 2016 at 9:55 Board Certified Radiologist. This report was verified electronically.
--- NOTE | 2016-03-24 10:20 | RADRPT ---
EXAM DATE/TIME: 03/24/2016 08:10 [facility] COMPARISON: No previous studies available for comparison. INDICATIONS : Brain lesion; assess for possible metastatic disease. IV CONTRAST: 100 cc Omnipaque 350 (iohexol) IV ; Cumulative dose for multiple exams. ORAL CONTRAST: No oral contrast ingested. RADIATION DOSE: 17.20 CTDIvol (mGy) ; Combined studies - Thorax/Abdomen/Pelvis MEDICAL HISTORY : Arthritis. Brain tumor. SURGICAL HISTORY : None. ENCOUNTER: Initial ACUITY: 2 days PAIN SCALE: Non-responsive LOCATION: chest TECHNIQUE: Volumetric scanning of the abdomen and pelvis was performed. Using automated exposure control and ad justment of the mA and/or kV according to patient size, radiation dose was kept as low as reasonably achievable to obtain optimal diagnostic quality images. FINDINGS: LOWER LUNGS: The visualized lower lungs are clear. LIVER: Homogeneous density without lesion. There is no dilation of the biliary tree. No calcified gallston es. SPLEEN: Normal size without lesion. PANCREAS: Within normal limits. KIDNEYS: Normal in size and shape. There is no mass, stone or hydronephrosis. ADRENAL GLANDS: Within normal limits. VASCULAR: There is no aortic aneurysm. BOWEL/MESENTERY: The stomach, small bowel, and colon demonstrate no acute abnormality. There is no free intraperitone al air or fluid. ABDOMINAL WALL: Within normal limits. RETROPERITONEUM: There is no lymphadenopathy. BLADDER: No wall thickening or mass. REPRODUCTIVE: Within normal limits. INGUINAL: There is no lymphadenopathy or hernia. MUSCULOSKELETAL: Within normal limits for patient age. CONCLUSION: 1. No evidence of metastatic disease. 2. Unremarkable CT of the abdomen and pelvis. Kwadwo Alvarado MD on March 24, 2016 at 10:17 Board Certified Radiologist. This report was verified electronically.
[2016-03-24] MEDS: SODIUM CHLOR 0.45% 1000 ML INJ 1,000 ML IV SCH (11:47)
[2016-03-24 12:00] VITALS: BP 146/71; PULSE 78; RESP 18; TEMP 96; O2SAT 97
--- NOTE | 2016-03-24 13:31 | HHI.PR ---
Subjective Remarks Patient reports that he is feeling better today. Memory is close to baseline. Speech is normal. Inquired about if he would be able to go home for the weekend and return fo biopsy. Objective Vitals Vital Signs Date Time Temp Pulse Resp B/P Pulse Ox O2 Delivery O2 Flow Rate FiO2 03/24/16 08:51 Room Air 03/24/16 08:00 95.8 60 18 138/75 96 03/24/16 04:00 97.0 65 20 131/63 96 03/24/16 00:00 97.0 70 20 135/73 96 03/23/16 23:17 Room Air 03/23/16 22:30 96.2 76 20 128/66 95 03/23/16 20:12 76 16 151/81 96 Room Air 03/23/16 20:00 21 03/23/16 15:18 56 16 138/87 97 Room Air I/O 03/23/16 03/23/16 03/23/16 03/24/16 03/24/16 03/24/16 07:00 15:00 23:00 07:00 15:00 23:00 Intake Total 280 ml 413 ml Balance 280 ml 413 ml Intake Oral 280 ml IV Total 413 ml # Voids 3 # Bowel Movements 1 Result Diagram: 03/23/1682903/24/1657 Imaging Last Impressions Chest CT 03/23/161899 Signed Impressions: Service Date/Time: Thursday, March 24, 2016 08:10 - CONCLUSION: Negative for metastatic disease disease or site of primary. Crow Nesbitt MD FACR Abdomen/Pelvis CT 03/23/161899 Signed Impressions: Service Date/Time: Thursday, March 24, 2016 08:10 - CONCLUSION: 1. No evidence of metastatic disease. 2. Unremarkable CT of the abdomen and pelvis. Kwadwo Alvarado MD Chest X-Ray 03/23/1647 Signed Impressions: Service Date/Time: March 09:52 - CONCLUSION: No acute disease. Philippe Kay MD Neck CTA 03/23/16824 Signed Impressions: Service Date/Time: March 08:34 - CONCLUSION: No acute disease. Kwadwo Alvarado MD Head CTA 03/23/16824 Signed Impressions: Service Date/Time: March 08:34 - CONCLUSION: 1. No evidence of vessel occlusion. 2. 3.1 cm mass in the anterior left temporal lobe suspicious for malignancy. MRI is recommended for further evaluation if clinically indicated. 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 No acute hemorrhage or midline shift is noted. Dr. Sanabria was called with the findings of the examination at 8:46 AM on 03/23/16. Kwadwo Alvarado MD ADDENDUM: The CTA of the brain was reviewed shortly after this reading and it was noted that there is a peripherally enhancing mass within the left temporal lobe with associated edema rather than an acute left MCA infarct. This finding was called immediately to Dr. Riky Delacruz at 8:55 AM on 03/23/16. Kwadwo Alvarado MD Brain MRI 03/23/16 0000 Signed Impressions: Service Date/Time: March 10:28 - CONCLUSION: 1. Peripherally enhancing mass within the left temporal lobe measuring 3.9 x 3.2 x 2.9 cm with associated vasogenic edema extending throughout the left temporal lobe and minimal subfalacine herniation to the right measuring 2 mm. This lesion is suspicious for primary central nervous system neoplasm, in particular , glioblastoma should be considered most likely. Kwadwo Alvarado MD Objective Remarks GENERAL: This is a well-nourished, well-developed patient, in no apparent distress. CARDIOVASCULAR: Regular rate and rhythm without murmurs, gallops, or rubs. RESPIRATORY: Clear to auscultation. Breath sounds equal bilaterally. No wheezes , rales, or rhonchi. GASTROINTESTINAL: Abdomen soft, non-tender, nondistended. Normal active bowel sounds MUSCULOSKELETAL: Extremities without clubbing, cyanosis, or edema. NEURO: Alert & Oriented x4 to person, place, time, situation. Moves all ext x4 A/P Problem List: (1) Brain tumor ICD Code: D49.6 Status: Acute (2) Osteoarthritis ICD Code: M19.90 Status: Acute Assessment and Plan 55-year-old male being admitted for newly discovered brain tumor. Patient presented with acute confusion, aphasia, and word salad. His symptoms have since resolved. Brain CT revealed a 3.1 cm mass in the anterior left temporal lobe suspicious for malignancy. MRI confirmed a " Peripherally enhancing mass within the left temporal lobe measuring 3.9 x 3.2 x 2.9 cm with associated vasogenic edema extending throughout the left temporal lobe and minimal subfalacine herniation to the right measuring 2 mm. This lesion is suspicious for primary central nervous system neoplasm, in particular, glioblastoma should be considered most likely" - Appreciate neurology and neurosurgery following. Patient has been started on Decadron for edema noted on imaging. He was also started on Keppra as his symptoms may have been a possible seizure. - No seizures on EEG - Oncology following. Abdomen/Pelvis and chest CT negative for primary or metastatic disease - Further plans per Neurosurgery. ?Excisional biopsy. Patient inquired if he could go home for the weekend and return. Osteoarthritis: May use Lortab as needed. Hold off on NSAIDs for now. GI prophylaxis: Pepcid. Stool softener PRN constipation. DVT PPx: Emmett Carr MD Mar 24, 2016 13:31
[2016-03-24 13:51] VITALS: O2SAT 94
--- NOTE | 2016-03-24 16:25 | EKG ---
Date Performed: 03/23/2016 Time Performed: 11:33:51 PTAGE: 55 years EKG: SINUS BRADYCARDIA When compared to previous tracing, heart rate is now slower, Otherwise no significant change. BORDERLINE ECG PREVIOUS TRACING : 03/23/2016 08.17 DOCTOR: Bryan De La Cruz Interpretating Date/Time 03/24/2016 16:24:18
[2016-03-24] MEDS ORDERED: LEVE500 PO (17:44)
[2016-03-24] MEDS ORDERED: DEXA4TAB PO (17:44)
[2016-03-24] MEDS ORDERED: FAMO20TA2 PO (17:44)
--- NOTE | 2016-03-24 17:44 | HHI.DCPOC ---
Discharge Care Plan Diagnosis: (1) Brain tumor Your Health Problems Are: Difficulty with ADL Difficulty with Speech Goals to Promote Your Health * To prevent worsening of your condition and complications * To maintain your health at the optimal level Directions to Meet Your Goals Take your medications as prescribed Follow your dietary instruction Follow activity as directed Keep your appointments as scheduled Take your immunizations and boosters as scheduled If your symptoms worsen call your PCP, if no PCP go to Urgent Care Center or Emergency Room Smoking is Dangerous to Your Health. Avoid second hand smoke Call the 24-hour hour crisis hotline for domestic abuse at Kenneth Burger MD Mar 24, 2016 17:44
--- NOTE | 2016-03-24 17:46 | HHI.NSPN ---
Exam Results Vital Signs Date Time Temp Pulse Resp B/P Pulse Ox O2 Delivery O2 Flow Rate FiO2 03/24/16 13:51 94 21 03/24/16 12:00 96.0 78 18 146/71 03/24/16 08:51 Room Air Medical Decision Making Impression and Plan Home today Readmit next week for craniotomy Kenneth Burger MD Mar 24, 2016 17:46
[2016-03-24 18:24] VITALS: O2SAT 94
--- NOTE | 2016-03-24 18:40 | PD.ONC.PN ---
Subjective Subjective Remarks Mr. 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 He is getting ready to be discharged home later this evening, he is scheduled to be readmitted to [facility] on Sunday for craniotomy with resection of the left temporal lobe mass. Objective Data Date Time Temp Pulse Resp B/P Pulse Ox O2 Delivery O2 Flow Rate FiO2 03/24/16 18:24 94 21 03/24/16 13:51 94 21 03/24/16 12:00 96.0 78 18 146/71 97 03/24/16 08:51 Room Air 03/24/16 08:00 95.8 60 18 138/75 96 03/24/16 04:00 97.0 65 20 131/63 96 03/24/16 00:00 97.0 70 20 135/73 96 03/23/16 23:17 Room Air 03/23/16 22:30 96.2 76 20 128/66 95 03/23/16 20:12 76 16 151/81 96 Room Air 03/23/16 20:00 21 03/24/16 03/24/16 03/24/16 07:00 15:00 23:00 Intake Total 280 ml 413 ml 682 ml Balance 280 ml 413 ml 682 ml Result Diagram: 03/23/16 0830 03/24/16 0657 Laboratory Results Laboratory Tests Test 03/24/16 06:57 Sodium Level 140 MEQ/L Potassium Level 4.0 MEQ/L Chloride Level 108 MEQ/L Carbon Dioxide Level 22.6 MEQ/L Anion Gap 9 MEQ/L Blood Urea Nitrogen 14 MG/DL Creatinine 0.90 MG/DL Estimat Glomerular Filtration 88 ML/MIN Rate Random Glucose 127 MG/DL Calcium Level 9.2 MG/DL Imaging Studies Last [address] 03/23/161899 Signed Impressions: Service Date/Time: Thursday, March 24, 2016 08:10 - CONCLUSION: Negative for metastatic disease disease or site of primary. Crow Nesbitt MD FACR Abdomen/Pelvis CT 03/23/161899 Signed Impressions: Service Date/Time: Thursday, March 24, 2016 08:10 - CONCLUSION: 1. No evidence of metastatic disease. 2. Unremarkable CT of the abdomen and pelvis. Kwadwo Alvarado MD Administered Medications Medications (Trade) Dose Ordered Sig/Lucero Route PRN Reason Start Time Stop Time Status Last Admin Dose Admin Levetriacetam/ Sodium Chloride (Keppra Inj/NS Inj) 105 ml @ 420 mls/hr Q6H IV 03/23/16 15:00 03/24/16 14:55 Famotidine 20 mg 20 mg BID PO 03/23/16 09:45 03/24/16 08:46 Sodium Chloride (1/2 NS 1000 ml Inj) 1,000 ml @ 75 mls/hr [id number] IV 03/23/16 09:47 03/24/16 11:47 IV Flush (NS Flush) 2 ml BID FLUSH 03/23/16 21:00 03/23/16 20:49 Dexamethasone Sodium Phosphate (Decadron Inj) 4 mg Q6HR IV PUSH 03/24/16 00:00 03/24/16 17:50 Objective Remarks GENERAL PHYSICAL APPEARANCE: Mr. Rincon is a middle-aged male, he is short, he is muscular built, appears to be in no acute distress, accompanied by his . He speaks in full sentences. HEENT: Head is atraumatic, normocephalic. Conjunctivae are non-pale. Sclerae anicteric. EOMI. PERRLA. Oral exam - no pharyngeal erythema. NECK EXAM: No palpable cervical or supraclavicular adenopathy. RESPIRATORY EXAM: Good air movement bilaterally. No added breath sounds. CARDIOVASCULAR: Regular rate and rhythm. S1 plus S2. No obvious murmurs, rubs or gallops. ABDOMINAL EXAM: Protuberant belly, soft, nontender, nondistended. No palpable organ enlargement. AXILLARY EXAMINATION: No evidence of lymphadenopathy. INGUINAL EXAMINATION: No evidence of lymphadenopathy. LOWER EXTREMITIES: No pretibial edema or calf tenderness. GEROPSYCHOLOGIST: 5/5 motor strength of the upper and lower extremities to flexion and extension. Assessment/Plan Assessment Mr. Rincon is a very pleasant 55-year-old male who reports being in his excellent usual state of health up until about two weeks ago when he began to notice subtle onset of difficulty with word finding, on the day of presentation he had an acute worsening of the symptoms to the point where his could not make out his words or speech. He presented to the emergency department with these symptoms, imaging studies of the brain revealed an infiltrative mass measuring up to 4 cm associated with vasogenic edema involving the left temporal lobe of the brain. The characteristics of this lesion and specifically the enhancement characteristics are most consistent with a glioblastoma multiforme. Plan 1. Enhancing mass involving the left temporal lobe; MRI findings with contrast consistent with a high-grade primary GEROPSYCHOLOGIST malignancy. CT scan of abdomen and pelvis revealed no extracranial source of potential disease. He has been reevaluated by Dr. Burger and has been advised readmission next week for a craniotomy with maximal safe resection/6 is no biopsy of this lesion. Continue antiepileptic therapy with Keppra. Continue outpatient dexamethasone, I will call in prescriptions to his pharmacy. I will also send in a referral to my clinic for outpatient follow-up. Jimmy Deng MD Mar 24, 2016 18:40
[2016-03-27] MEDS ORDERED: DEXA4TAB PO (20:37)
== END 2016-03-24 19:44 | disposition home or self-care (01) | DRG 54 ==
LOC: NEPE 08:07 → NEDA 09:52 → NEDH 15:59 → N05A 22:20
PROVIDERS: ADMIT Hospitalist; ATTEND Hospitalist
DX: D49.6 Neoplasm of unspecified behavior of brain (principal); G93.6 Cerebral edema; G40.89 Other seizures; M19.90 Unspecified osteoarthritis, unspecified site; E29.1 Testicular hypofunction; Z87.891 Personal history of nicotine dependence
CPT/HCPCS: 70450; 70496; 70498; 70553; 71010; 71260; 74177; 80048; 82435; 82550; 82552; 82565; 82947; 82948; 84132; 84295; 84484; 84520; 85025; 85384; 85610; 85730; 86850; 86900; 86901; 93005; 95819; 96360; A9579; J1100; J1953; J7030; Q9967